=== PATIENT | male | born 1965 | race Caucasian/White ===

== ENCOUNTER 2020-01-02 15:49 | Emergency (ER) | payer BC, SELFPAY ==
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
--- NOTE | ~2020-01-02 | XR_ITS ---
EXAMINATION: XR tibia fibula RT 2V, XR ankle RT min 3V EXAM DATE: 01/02/2020 16:31 INDICATION: Initial encounter following injury, with pain of the right ankle. TECHNIQUE: Right ankle frontal, lateral and oblique projections obtained and reviewed. Right tibia/f ibula frontal and lateral projections obtained and reviewed. There is no prior study for comparison. FINDINGS: There is right ankle fracture dislocation with complete posterior displacement, approximate ly 50% lateral displacement of the talus with respect to the tibial plafond, and about 40% lateral an gulation. There is oblique distal fibular metaphyseal fracture into superolateral aspect of mortise w ith significant posterior displacement, posterior lateral angulation. Disruption of the distal tibiof ibular syndesmosis. Probable posterior tibial malleolar fracture. Disruption of the deltoid ligament with severely widened mortise. Overlying soft tissue swelling. The mid and proximal aspects of the ti sophy and fibula are unremarkable. IMPRESSION: Right ankle fracture dislocation. Reviewed, dictated and finalized at location A. IMPRESSION: Right ankle fracture dislocation.
[2020-01-02 15:51] VITALS: BP 140/97; PULSE 82; RESP 14; TEMP 37.2; O2SAT 97
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
[2020-01-02] MEDS: HYDROMORPHONE HCL 1 MG/ML INJ IV PUSH (16:18)
[2020-01-02] MEDS: TETANUS,DIPHTHERIA,AC PERTUSSIS ADULT (0.5 ML) BOOSTRIX IM (16:30)
[2020-01-02] MEDS: ONDANSETRON INJ 4 MG/2 ML VIAL IV PUSH (16:50)
--- NOTE | 2020-01-02 17:38 | PC.NURSE ---
PT received ice chips with Dr. Katlin niño.
[2020-01-02 19:09] VITALS: BP 159/87; PULSE 85; RESP 17; O2SAT 98
== END 2020-01-02 19:10 | disposition home or self-care (01) ==
PROVIDERS: Emergency Provider Emergency Medicine
DX: S01.111A Laceration without foreign body of right eyelid and periocular area, initial encounter (principal); S82.891A Other fracture of right lower leg, initial encounter for closed fracture; S82.871A Displaced pilon fracture of right tibia, initial encounter for closed fracture; S06.9X9A Unspecified intracranial injury with loss of consciousness of unspecified duration, initial encounter; Z23 Encounter for immunization; Y04.2XXA Assault by strike against or bumped into by another person, initial encounter
CPT/HCPCS: 12011; 25605; 28435; 70450; 72125; 73590; 73600; 73610; 90471; 90715; 96374; 96375; 99285; J1170; J2405; J3010

== ENCOUNTER 2020-01-03 10:52 | Outpatient (CLI) | payer BC, SELFPAY ==
--- NOTE | ~2020-01-03 | CT_ITS ---
EXAMINATION: CT ankle RT wo con DATE: 01/03/2020 11:25 INDICATION: Displaced trimalleolar fracture of right lower leg. TECHNIQUE: Computed tomography (CT) of the right ankle was performed without intravenous contrast. Au tomated exposure control and iterative reconstruction technique were employed. The dose-length produc t was 362.87 mGy-cm. COMPARISON: Right ankle radiograph 01/02/2020 FINDINGS: There is an oblique fracture of distal fibula with the anteromedial aspect of the fracture line at the level of the tibial plafond. The distal fracture fragment demonstrates 1 mm posterior dis placement. There is a comminuted fracture of posterior malleolus with up to 2 mm gap at the articular surface. There is well-corticated heterotopic ossification distal to medial malleolus from old injur y. There is a displaced punctate avulsion fracture of medial malleolus. There is normal alignment at the ankle mortise. There is an ankle joint effusion with small loose bodies. There is mild osteoarthr itis of subtalar joint. There is extensive subcutaneous edema. IMPRESSION: 1. Trimalleolar ankle fracture. 2. Ankle joint effusion with loose bodies. Reviewed, dictated and finalized at location A.
== END 2020-01-03 10:53 | disposition home or self-care (01) ==
PROVIDERS: Visit Provider Orthopaedic Surgery
DX: S82.851A Displaced trimalleolar fracture of right lower leg, initial encounter for closed fracture (principal); S93.04XA Dislocation of right ankle joint, initial encounter; M25.471 Effusion, right ankle; M24.071 Loose body in right ankle
CPT/HCPCS: 73700

== ENCOUNTER 2020-01-04 01:24 | Day surgery (SDC) | payer BC, SELFPAY ==
[2020-01-03 13:10] VITALS: BP 133/71; PULSE 64; RESP 16; TEMP 36.9; O2SAT 98; BMI 27.8
[2020-01-04] VITALS (7 sets, daily range): BP systolic 108–132; BP diastolic 62–84; PULSE 52–70; RESP 10–18; TEMP 36.1–36.6; O2SAT 97–99
--- NOTE | ~2020-01-04 | XR_ITS ---
EXAMINATION: XR surgery orthopedic DATE: 01/04/2020 13:00 INDICATION: Trimalleolar right ankle fracture. TECHNIQUE: 5 intraoperative fluoroscopic views of right ankle were obtained. Were obtained. I was not present. Fluoroscopy exposure time was 44 seconds. COMPARISON: Right ankle CT 01/03/2020 FINDINGS: There is an oblique fracture of distal fibula status post open reduction internal fixation with semitubular plate, screws, and interfragmentary screw. There is fixation of the tibiofibular syn desmosis. Again seen is a coronal fracture of the posterior malleolus with 2 mm gap at the articular surface. Again seen is a punctate avulsion fracture distal to medial malleolus. IMPRESSION: 1. Trimalleolar ankle fracture status post open reduction internal fixation. Reviewed, dictated and finalized at location A.
--- NOTE | 2020-01-04 07:08 | WPDHPUPDATE1 ---
History and Physical Update Update Date/Time: 01/04/20 07:08 History and Physical has been reviewed, including an updated exam of the patient. There are NO changes in the patient's condition. Risks, benefits, and alternatives have been discussed and questions answered. Patient agrees to proceed with procedure.
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
--- NOTE | 2020-01-04 09:39 | WPDANESPNB ---
Anes - Peripheral Nerve Block Date/Time: 01/04/20 09:39 I have discussed with the patient/family/POA the placement of a peripheral nerve block for post-operative pain management, including associated risks, benefits, complications, and side effects. Alternative methods of post-operative analgesia were detailed. Questions were solicited and answers provided to the satisfaction of the patient/family/POA. Time-Out: A pre-procedural Time-Out was completed immediately before starting the procedure and confirmed: Patient Identification, Site, Procedure, Patient Position and the Availability of Requisite Equipment. Clinical Indications: Acute post-operative pain management requested by the operative surgeon. Nerve Block Insertion Note Anes-nerve block: posterior fossa sciatic (20cc) right and adductor canal (10cc) right Patient position: supine Skin prep: chlorhexidine Needle: 22 gauge, stimulating, insulated echogenic needle. Needle length: 80 mm Technique: ultrasound (in plane) Injectate: bupivacaine 0.5% with epi 5 mcg/ml (20cc) Observations: tolerated well Complications: none Procedure start time:: 1030 Procedure end time:: 1034
[2020-01-04] MEDS: LACTATED RINGERS 1,000 ML 30 ML IV CONT ×3 (09:45→13:42)
[2020-01-04] MEDS: ceFAZolin 2 GM/D5W 50 ML 2 GM/50 ML BAG IVPB (11:25)
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
== END 2020-01-04 15:43 | disposition home or self-care (01) ==
PROVIDERS: Visit Provider Orthopaedic Surgery
PROC: (CPT 27829; principal; 2020-01-04 11:00)
DX: S82.851A Displaced trimalleolar fracture of right lower leg, initial encounter for closed fracture (principal); S93.431A Sprain of tibiofibular ligament of right ankle, initial encounter; G89.18 Other acute postprocedural pain; W03.XXXA Other fall on same level due to collision with another person, initial encounter
CPT/HCPCS: 27829; 27822; 64445; 64447; C1713; J0131; J0690; J1100; J2250; J2405; J2704; J3010; J7120

== ENCOUNTER 2021-02-25 10:24 | Emergency (ER) | payer OTHER, SELFPAY ==
--- NOTE | ~2021-02-25 | CT_ITS ---
EXAMINATION: CT abdomen pelvis w con DATE: 02/25/2021 12:00 INDICATION: Abdominal pain TECHNIQUE: Computed tomography (CT) of the abdomen and pelvis was performed with 100 mL Omnipaque-350 intravenous contrast. Automated exposure control and iterative reconstruction technique were employe d. The dose-length product was 698.05 mGy-cm. COMPARISON: None FINDINGS: Visualized mid to lower lungs are clear. Heart size is normal. No pericardial or pleural effusion. Sm all sliding-type hiatal hernia. 7 mm calcified gallstone near the neck of the gallbladder. No gallbla dder dilation, wall thickening or pericholecystic inflammatory change to suggest acute cholecystitis. Liver is normal with no intra or extra hepatic ductal or ductal dilation. Spleen, pancreas, bilatera l adrenal glands and kidneys are normal. There are few scattered colonic diverticula without adjacent inflammatory change to suggest diverticulitis. Small bowel and appendix are normal. Bladder is brandon l. Small fat-containing left inguinal hernia. Trace amount of free fluid in the pelvis. No abscess or free intraperineal gas. Postoperative change of prior umbilical hernia mesh repair. No pathologicall y enlarged abdominal or pelvic lymphadenopathy. Mild lumbar levocurvature curvature. Severe disc heig ht loss with sclerotic Modic type III degenerative endplate changes at L2-L3. Otherwise mild lumbar s pondylosis. IMPRESSION: 1. Trace amount of nonspecific free fluid in the pelvis which is of indeterminate etiology. No other acute intra-abdominal/pelvic process. 2. Cholelithiasis. 3. Small sliding-type hiatal hernia. 4. Small fat-containing left inguinal hernia and changes of prior umbilical hernia mesh repair. Reviewed, dictated and finalized at location A. IMPRESSION: 1. Trace amount of nonspecific free fluid in the pelvis which is of indetermina te etiology. No other acute intra-abdominal/pelvic process. 2. Cholelithiasis. 3. Small sliding-type hiatal hernia. 4. Small fat-containing left inguinal hernia and changes of prior umbilical her negrito mesh repair.
--- NOTE | ~2021-02-25 | US_ITS ---
EXAMINATION: US abdomen limited EXAM DATE: 02/25/2021 14:49 INDICATION: Right upper quadrant pain. TECHNIQUE: Multiple grayscale and Doppler images of the abdomen right upper quadrant were obtained (b y a technologist who performed the scan) and subsequently reviewed. There is no prior study for leoncio dumont. FINDINGS: The pancreatic head and body are normal in appearance. The pancreatic tail is not visualized. The l iver has normal echogenicity and contour. There are no focal liver lesions identified. There is no evidence of intrahepatic biliary duct dilation. Portal venous flow was seen in the hepatopedal, nor mal direction and has normal Doppler waveform. No right-sided hydronephrosis. Common bile duct measures 3-4 mm, which is normal. The gallbladder wall is normal in thickness, with expected amount of distention. No sonographic evidence of pericholecystic fluid. There is no cholel ithiases. Technologist performing exam reports patient did not demonstrate sonographic Nicole's sign. Please note that this sign is less reliable in patients who have received pain medication. IMPRESSION: Cholelithiasis. Reviewed, dictated and finalized at location B. IMPRESSION: Cholelithiasis.
[2021-02-25 10:45] VITALS: BP 154/97; PULSE 57; RESP 16; TEMP 36.4; O2SAT 99
[2021-02-25] MEDS: SODIUM CHLORIDE 0.9% IV 1,000 ML 999 ML IV CONT (11:20)
[2021-02-25 11:28] LABS: Basophils Absolute Auto 0.1 K/mm3 (0.0-0.1); Basophils Percent Auto 0.8 % (0.2-1.2); Eosinophils Percent Auto 25.8 % (0-4.4); Hematocrit 39.4 % (42.0-52.0); Hemoglobin 13.1 g/dL (14.0-18.0); Immature Granulocyte Absolute 0.02 K/mm3 (0.00-0.031); Immature Granulocyte Percent A 0.3 % (0-0.5); Lymphocytes Absolute Auto 1.29 K/mm3 (0.9-3.2); Lymphocytes Percent Auto 17.1 % (18.3-44.2); Mean Corpuscular HGB Conc 33.2 g/dl (32-36); Mean Corpuscular Hemoglobin 29.2 pg (26-34); Mean Corpuscular Volume 87.8 fl (80-100); Mean Platelet Volume 9.8 fl (7.4-10.4); Monocytes Absolute Auto 0.5 K/mm3 (0.1-0.6); Monocytes Percent Auto 6.1 % (2.6-8.5); Neutrophils Absolute Auto 3.8 K/mm3 (1.3-6.7); Neutrophils Percent Auto 49.9 % (45.5-73.1); Platelet Count Result 215 k/mm3 (150-375); Red Blood Count 4.49 M/mm3 (4.6-6.20); Red Cell Distribution Width 13.4 % (11.5-14.5); White Blood Count 7.6 K/mm3 (4.5-10.0)
--- NOTE | 2021-02-25 11:28 | ED.ABDPAIN ---
HPI - Abdominal Pain General Chief Complaint: Abdominal Pain Stated Complaint: ABD PAIN [id number] Time Seen by Provider: 02/25/21 11:06 Source: patient, RN notes reviewed and old records reviewed Mode of arrival: ambulatory Limitations: no limitations History of Present Illness HPI narrative: Patient is 55 years old white male presented to the ED with diffuse abdominal pain, intermittent that for about 1 month. Patient also complaining of watery stool over the last 3 weeks on average 3-12 times a day. Patient denies any fever, chills, nausea, vomiting. History of abdominal hernia repair, does not take medicine at home, patient does not smoke, drink daily, uses marijuana intermittently, history of Covid infection March 2020, not vaccinated yet. Related Data Allergies Allergy/AdvReac Type Severity Reaction Status Date / Time No Known Allergies Allergy Verified 02/25/21 11:03 Review of Systems Review of Systems: Narrative: CONSTITUTIONAL: Denies fever, chills, or sweats. EYES: Denies visual changes, redness, or discharge. ENT: Denies rhinorrhea, congestion, sore throat, or otalgia. CARDIOVASCULAR: Denies chest pain, palpitations, or edema. RESPIRATORY: Denies cough or dyspnea. GASTROINTESTINAL: Abdominal pain and diarrhea GENITOURINARY: Denies dysuria or hematuria. SKIN: Denies rash or itching. MUSCULOSKELETAL: Denies back pain, joint pain, or myalgia. NEUROLOGIC: Denies headache, numbness, or weakness. PSYCHIATRIC: Denies anxiety or depression. [facility] Past Medical History Medical History Congenital hindfoot valgus Flat foot [pes planus] (acquired), left foot Left ankle instability Overweight (BMI 25.0-29.9) Social History Social History Smoking status: Never smoker Alcohol intake: current Drinks per week: 4 Substance use: never Substance use type: does not use Gender identity (if verbalized by the patient): Male Exam Narrative: Exam Narrative: General appearance: Well-developed, well-nourished Skin: Normal color Head: Normocephalic, nontraumatic Eyes: Clear conjunctiva ENT: Oropharynx normal, ears normal, nose normal Neck: Supple, nontender Chest and respiratory: Airway patent, no respiratory distress, no accessory muscle use Heart: Regular rate/rhythm Abdomen: Soft, nontender, no organomegaly, quiet bowel sounds Vascular: Normal peripheral pulses, normal capillary refill. Musculoskeletal: Normal range of motion, nontender back Neurologic: Alert and oriented ?3, RECREATION THERAPY AIDE is normal as tested, no gross motor deficit Course Course Emergency Course: Stable Vital Signs Vital signs: Vital Signs Temperature 36.4 C 02/25/21 10:45 Pulse Rate 57 L 02/25/21 10:45 Respiratory Rate 16 02/25/21 10:45 Blood Pressure 154/97 H 02/25/21 10:45 Pulse Oximetry 99 02/25/21 10:45 Temperature 36.4 C 02/25/21 10:45 Pulse Rate 55 L 02/25/21 13:19 Respiratory Rate 16 02/25/21 10:45 Blood Pressure 147/104 H 02/25/21 13:19 Pulse Oximetry 100 02/25/21 13:19 MDM - Abdominal Pain MDM Narrative Medical decision making narrative: Abdominal pain for over 4 weeks, diarrhea over 3 weeks, patient denies any fever, chills, aggravating or relieving factors. Labs, CT abdomen pelvis with IV contrast, IV fluid, ordered. Work-up showed no significant abnormality. Patient will be discharged to follow-up with [facility] laborer for further evaluation including colonoscopy, possible colon biopsy. Differential Diagnosis Differential diagnosis: Likely abdominal pain, diverticulitis and gastroenteritis Lab Data Result diagrams:
[2021-02-25 11:42] LABS: Alanine Aminotransferase 19 U/L (4-50); Albumin Level 4.3 g/dL (3.5-5.1); Alkaline Phosphatase 92 U/L (38-126); Anion Gap 5 mmol/L (8-16); Aspartate Amino Transferase 25 U/L (17-59); Bilirubin,Total 0.6 mg/dL (0.2-1.3); Blood Urea Nitrogen 11 mg/dL (9-20); Calcium 9.1 mg/dL (8.4-10.2); Carbon Dioxide 31 mmol/L (22-30); Chloride 105 mmol/L (98-107); Estimated CRCL calculation 81 ml/min; Estimated Glomerular Filt Rate > 60; Glucose 100 mg/dL (65-110); Lipase 124 U/L (23-300); Potassium 3.9 mmol/L (3.4-5.0); Sodium 141 mmol/L (137-145)
[2021-02-25 12:43] LABS: Add Urine Microscopic? NO; Appearance Urine Clear (Clear); Bilirubin Urine Negative (Negative); Blood Urine Negative (Negative); Color Urine Straw (Yellow); Glucose Urine UA Negative (Negative); Ketones Urine Negative (Negative); Leukocyte Esterase Ur Negative LEU/UL (Negative); Nitrate Urine Negative (Negative); Protein Urine Negative (Negative); Urobilinogen Urine Negative mg/dL (<2.0)
[2021-02-25 12:47] LABS: Specific Grav Ur 1.041 (1.001-1.035)
[2021-02-25 13:19] VITALS: BP 147/104; PULSE 55; O2SAT 100
[2021-02-25 15:02] VITALS: BP 150/96; PULSE 60; RESP 16; O2SAT 100
== END 2021-02-25 15:03 | disposition home or self-care (01) ==
PROVIDERS: Emergency Provider Emergency Medicine
DX: R10.84 Generalized abdominal pain (principal); R19.7 Diarrhea, unspecified; M21.42 Flat foot [pes planus] (acquired), left foot; Q66.6 Other congenital valgus deformities of feet; Z86.16 Personal history of COVID-19; E66.3 Overweight; Z68.28 Body mass index [BMI] 28.0-28.9, adult; K80.20 Calculus of gallbladder without cholecystitis without obstruction; K44.9 Diaphragmatic hernia without obstruction or gangrene; K40.90 Unilateral inguinal hernia, without obstruction or gangrene, not specified as recurrent
CPT/HCPCS: 36415; 74177; 76705; 80053; 81003; 83690; 85025; 96360; 99284; J7030; Q9967

== ENCOUNTER → 2021-03-01 00:55 | Outpatient (CLI) | payer OTHER, SELFPAY ==
[2021-03-01 18:27] LABS: SARS-CoV-2 RNA PCR Negative
== END ==
PROVIDERS: Visit Provider Surgery
DX: Z01.812 Encounter for preprocedural laboratory examination (principal); Z20.822 Contact with and (suspected) exposure to COVID-19
CPT/HCPCS: C9803; U0003; U0005

== ENCOUNTER 2021-03-01 08:09 | Outpatient (CLI) | payer OTHER, SELFPAY ==
[2021-03-01 08:59] LABS: Alanine Aminotransferase 21 U/L (4-50); Albumin Level 4.2 g/dL (3.5-5.1); Alkaline Phosphatase 89 U/L (38-126); Amylase 55 U/L (30-110); Aspartate Amino Transferase 23 U/L (17-59); Bilirubin,Total 0.3 mg/dL (0.2-1.3); Lipase 146 U/L (23-300)
== END 2021-03-01 08:10 | disposition home or self-care (01) ==
PROVIDERS: Visit Provider Surgery
DX: Z01.818 Encounter for other preprocedural examination (principal); K80.10 Calculus of gallbladder with chronic cholecystitis without obstruction
CPT/HCPCS: 36415; 80076; 82150; 83690

== ENCOUNTER 2021-03-05 01:38 | Day surgery (SDC) | payer OTHER, SELFPAY ==
[2021-02-28 14:53] VITALS: BMI 28.4
[2021-03-05] VITALS (8 sets, daily range): BP systolic 111–139; BP diastolic 63–90; PULSE 54–66; RESP 10–20; TEMP 36.8; O2SAT 93–100
--- NOTE | 2021-03-05 10:22 | P.PNAN_ITS ---
Anes - Initial Pre Proc Eval Procedure: Operation Date: 03/05/21 12:00 Proposed Procedures p Laparoscopic Cholecystectomy, Possible Intraoperative Cholangiograms, Possible Open - Baltazar De Souza MD Date/Time: 03/05/21 10:22 Surgeon: Baltazar De Souza MD Pre Op Diagnosis: Chronic Cholecystitis with Cholelithiasis Patient Data Age: 55 Gender: M Height: 1.83 m Weight: 94 kg Allergies Allergy/AdvReac Type Severity Reaction Status Date / Time No Known Allergies Allergy Verified 03/05/21 10:13 Home Medications Medication Instructions Recorded Confirmed Type esomeprazole magnesium 20 mg 20 mg PO DAILY 02/26/21 03/05/21 History capsule,delayed release famotidine 20 mg tablet 20 mg PO DAILY PRN 02/26/21 03/05/21 History ferrous sulfate 325 mg (65 mg 325 mg PO DAILY 02/26/21 03/05/21 History iron) tablet vitamin E 200 unit capsule 200 unit PO DAILY 02/26/21 03/05/21 History Patient hx anesthesia problems: none Family hx anesthesia problems: none [facility] Past Medical History Medical History (Updated 02/27/21 @ 09:04 by Kylah Marx) Congenital hindfoot valgus Flat foot [pes planus] (acquired), left foot High cholesterol Left ankle instability Overweight (BMI 25.0-29.9) Surgical History Surgical History (Updated 02/27/21 @ 09:12 by Kylah Marx) H/O umbilical hernia repair with mesh History of ankle surgery right ankle plate Hx of tonsillectomy Family History Family History Father , age 71 Carcinoma of colon Mother Cerebrovascular accident Social History Social History Smoking status: Never smoker Alcohol intake: current Drinks per week: 5 Substance use: former Substance use type: marijuana Other substance usage details: CHEWABLEABLES Living arrangements: with family Additional occupation/education comments: Sales Gender identity (if verbalized by the patient): Male Anes - Eval Final PreProcedure Day of Procedure 03/05/21 10:22 Patient weight: overweight Heart: regular rate and rhythm Lungs: clear to auscultation Airway: Mallampati scale class II Neurological: alert and oriented Last oral intake: >/= 8 hours ASA classification: II Emergent: no Anesthetic plan: proceed Anesthesia type and monitoring: general ETT and standard monitoring Informed Consent: The patient's anesthetic plan and its attendant risks and benefits were discussed with the patient/family/POA. Questions were solicited and answers provided to the satisfaction of the patient/family/POA.
[2021-03-05] MEDS: LACTATED RINGERS 1,000 ML 30 ML IV CONT ×2 (10:25→14:01)
[2021-03-05] MEDS: ACETAMINOPHEN 500 MG TABLET 1000 MG PO (10:28)
[2021-03-05] MEDS: KETOROLAC 15 MG/ML VIAL (*BKC) IV PUSH (10:28)
--- NOTE | 2021-03-05 12:15 | WPDHPUPDATE1 ---
History and Physical Update Update Date/Time: 03/05/21 12:15 History and Physical has been reviewed, including an updated exam of the patient. There are NO changes in the patient's condition. Risks, benefits, and alternatives have been discussed and questions answered. Patient agrees to proceed with procedure.
[2021-03-05] MEDS: ceFAZolin 2 GM/D5W 50 ML 2 GM/50 ML BAG IVPB (12:19)
[2021-03-05] MEDS: BUPIVACAINE/EPINEPHRINE 0.5% 50 ML VIAL (14:00)
--- NOTE | 2021-03-05 14:21 | W.PM.PROC2 ---
Procedure Note - Detailed Date of Procedure 03/05/21 Pre-op Diagnosis Chronic Cholecystitis with Cholelithiasis Post-op Diagnosis same Procedure Performed Laproscopic Cholecystectomy Surgeon Baltazar De Souza MD Pellet Post Inspector Yolanda MONROE.OR medical assistant cardiology Anesthesia general Indications Patient has had at imaging suggestive of cholelithiasis and has had intermittent upper abdominal pain for some time. Please see the history physical for further details. Findings Fairly normal-appearing gallbladder with some omental adhesions on the lower 3rd. Description of Procedure Patient was seen preoperatively in the holding area and risks, benefits and alternatives confirmed. Patient was taken to the operating room and general anesthesia was induced. A time out was then preformed with the surgery team confirming patient and site of surgery. The abdomen was prepped and draped in the usual sterile fashion. Incision was made just below the left costal margin with an 11 blade knife. I then used the Veress needle technique to enter the abdomen by using the water drop test placing the needle through the left upper quadrant into the peritoneum is easy flow of the saline into the abdomen and then we connected CO2 gas. Abdomen was insufflated to appropriate pressure at 14 mmHg and then I used the 5 mm 0 degree scope through a 5 mm port to carefully twisted the port into the abdomen under direct vision. We had a good pneumoperitoneum upon entry to the abdomen and this allowed me to inspect underneath the umbilicus where the patient previously had an umbilical hernia. There indeed was a good amount of omental adhesions to under the side of umbilicus no obvious repeat hernia and therefore I decided to place a 12 mm port just to the right of all the adhesions that were present on in a about 6 cm bill moore's slough underneath the umbilicus. In order to do this I placed local anesthetic into the marked area just lateral to the umbilicus on the right local anesthetic was infiltrated into the abdominal wall musculature and fascia full-thickness. Following this 11 blade was used to make a 12 mm incision I then used the Bovie cautery under direct vision to carefully incise the fascia at the level of the anterior and posterior rectus sheath and then I carefully twisted the Padilla cannula through this area into the abdomen. The balloon was insufflated and the all of pulled down and pullback. This allowed us a good insufflation a good camera port. The 10 mm laparoscoped was placed on the camera light source and this was then used for the rest of the case. First under low flow and then under high flow the abdomen was insufflated with carbon dioxide never exceeding a pressure of 14. Two more 5 mm trocars were then introduced under direct vision. The following trocars were introduced under direct vision: two 5 mm trocars along the right costal margin laterally in the subcostal area. There were some significant omental adhesions to the underside of the gallbladder. These were taken down with blunt and sharp dissection using some Bovie cautery for hemostasis. We were able to dissect this completely away from the neck of the gallbladder. I then carefully used the L-shaped cautery and the [place] dissector to dissect out the triangle of Calot. I then was able to dissect out both the cystic duct and cystic artery and identify a window of safety. The gall bladder was grasped and the cystic duct and artery were dissected free and clipped with an 5 mm endo-clip chief drafter. The cystic duct and artery were clipped with use of 2 clips on the patient's side 1 on the gallbladder side utilizing a 5 mm endoclip-chief drafter. The cystic duct was then transected. The cystic artery was also transected at this point. The gall bladder was removed using electrocautery and then removed from the abdomen using a large 10 mm grasper via the 12 mm bobbi-umbilical incision. I did have to open the gallbladder as I pulled it up
== END 2021-03-05 16:01 | disposition home or self-care (01) ==
PROVIDERS: Visit Provider Surgery
PROC: 0FT44ZZ Resection of Gallbladder, Percutaneous Endoscopic Approach (ICD-10-PCS; CPT 47562; principal; 2021-03-05 12:00)
DX: K80.10 Calculus of gallbladder with chronic cholecystitis without obstruction (principal); E78.00 Pure hypercholesterolemia, unspecified; F12.90 Cannabis use, unspecified, uncomplicated
CPT/HCPCS: 47562; 36415; 80076; 82150; 83690; 88304; A9270; C9803; J0690; J1100; J1885; J2250; J2405; J2704; J2710; J2765; J3010; J7030; J7120; Q9966; U0003; U0005

== ENCOUNTER → 2021-03-10 09:14 | Outpatient (CLI) | payer OTHER, SELFPAY ==
--- NOTE | ~2021-03-10 | MR_ITS ---
EXAMINATION: MR ankle LT wo con DATE: 03/10/2021 10:14 INDICATION: Chronic left foot and ankle pain and swelling. TECHNIQUE: Magnetic resonance imaging (MRI) of the left ankle was performed without intravenous contr ast. Sequences included sagittal, coronal, and axial proton-density weighted fast spin echo without a nd with fat saturation. COMPARISON: Left ankle radiographs dated 02/04/2021 FINDINGS: Medial ankle ligaments: There are few tiny heterotopic ossicles in the deep deltoid ligament along with suggestion of mild la xity to the fibers to the anterior portion of the deep deltoid ligament consistent with sequela of ch ronic sprain. There is also mild thickening of the superficial deltoid ligament as well as the supero medial component of the spring ligament complex without significant increased signal or surrounding e norma consistent with scarring related to chronic sprain. Lateral ankle ligaments: The anterior and posterior inferior tibiofibular ligaments are normal. The posterior talofibular liga ment is normal. There is complete tear of the anterior talofibular ligament and high-grade partial if not complete tear of the calcaneofibular ligament, both likely chronic. Tendons: Achilles tendon is normal. There is moderate tendinopathy of the peroneus longus and peroneus brevis tendons. Both tendons are partially subluxed across the lateral margin of the retromalleolar groove w ith underlying small osteophyte along the lateral rim of the retromalleolar groove. There appear to b e a longitudinal split tears of both tendons at this level. The tibialis anterior and extensor halluc is longus and extensor digitorum longus tendons are normal. The tibialis posterior, flexor digitorum longus and flexor hallucis longus tendons are normal.. Small amount of fluid within the tibialis post erior tendon sheath both above and below the ankle consistent with mild to moderate tenosynovitis. Plantar fascia: There is thickening and mild increased signal at the proximal plantar aponeurosis with small enthesop hyte at its calcaneal insertion consistent with mild chronic enthesopathy. No surrounding marrow or s oft tissue edema to suggest acute plantar fasciitis. Bones/other: Moderate osteoarthritis of the ankle joint with nonuniform joint space narrowing and regions of high- grade chondromalacia with full/near full-thickness cartilage loss and underlying subarticular edema a long the lateral aspect of the talar dome and tibial plafond and as well as along portions of the art iculation between the medial side of the talus and the medial malleolus. Mild to moderate osteoarthri tis in the midfoot with additional high-grade chondromalacia along both the proximal and distal artic ular surfaces of the middle cuneiform and at the lateral aspect of the distal articular surface of th e navicula appear mild subtalar osteoarthritis. No fracture or pathologic marrow replacing process. L isfranc ligament complex is normal. Fluid: Likely reactive large tibiotalar and subtalar joint effusion which extends into the sinus Tarsi. Mult ilobulated ganglion cyst which appears to arise at the lateral margin of the subtalar joint and exten ding approximately 3.7 cm AP overlying the lateral margin of the calcaneal cuboid joint and measuring 1.3 x 0.8 cm in maximal orthogonal dimensions. Additional less well-defined multilobulated ganglion cyst with surrounding soft tissue edema extending anteroinferiorly from the posterior medial margin o f the subtalar joint along the deep margin of the tarsal tunnel. Mild marrow edema and cystic changes at the calcaneus along the angle of Gissane. IMPRESSION: 1. Chronic medial and lateral ankle sprains including complete tear of the anterior talofibular ligam ent and high grade partial if not complete tear of the calcaneofibular ligament. 2. Polyarticular osteoarthritis, moderate severity with
== END ==
PROVIDERS: Visit Provider Orthopaedic Surgery
DX: M25.572 Pain in left ankle and joints of left foot (principal); S93.492A Sprain of other ligament of left ankle, initial encounter; M19.072 Primary osteoarthritis, left ankle and foot; M94.272 Chondromalacia, left ankle and joints of left foot; M25.472 Effusion, left ankle; S96.812A Strain of other specified muscles and tendons at ankle and foot level, left foot, initial encounter; M65.872 Other synovitis and tenosynovitis, left ankle and foot; M77.32 Calcaneal spur, left foot
CPT/HCPCS: 73721

== ENCOUNTER → 2021-05-12 03:02 | Outpatient (CLI) | payer OTHER, SELFPAY ==
[2021-05-12 20:20] LABS: SARS-CoV-2 RNA PCR Negative
== END ==
PROVIDERS: Visit Provider Orthopaedic Surgery
DX: Z01.812 Encounter for preprocedural laboratory examination (principal); Z20.822 Contact with and (suspected) exposure to COVID-19
CPT/HCPCS: C9803; U0003; U0005

== ENCOUNTER 2021-05-15 00:19 | Day surgery (SDC) | payer OTHER, SELFPAY ==
[2021-05-06 14:48] VITALS: BMI 27.9
--- NOTE | 2021-05-14 14:04 | P.PNAN_ITS ---
Anes - Initial Pre Proc Eval Procedure: Operation Date: 05/15/21 07:30 Proposed Procedures p Left Ankle Medial and Lateral Ligament Reconstruction(Left) - Yonathan Florez MD s Ankle Arthroscopy with Debridement, Insertion Subtalar Implant - Yonathan Florez MD Date/Time: 05/14/21 14:04 Surgeon: Yonathan Florez MD Pre Op Diagnosis: left ankle instability, left flat foot Patient Data Age: 55 Gender: M Height: 1.83 m Weight: 93.44 kg Allergies Allergy/AdvReac Type Severity Reaction Status Date / Time No Known Allergies Allergy Verified 05/06/21 14:46 Home Medications Medication Instructions Recorded Confirmed Type No Home Medications 05/06/21 05/15/21 History Patient hx anesthesia problems: none Family hx anesthesia problems: none Results Review: All pre-operative results and documents have been reviewed as part of the pre-operative evaluation. [facility] Past Medical History Medical History (Updated 05/14/21 @ 14:05 by Jamison Lainez MD) Congenital hindfoot valgus Flat foot [pes planus] (acquired), left foot High cholesterol Hypertension Left ankle instability Left inguinal hernia Overweight (BMI 25.0-29.9) Surgical History Surgical History H/O umbilical hernia repair with mesh History of ankle surgery right ankle plate Hx laparoscopic cholecystectomy 03-05-21 Hx of tonsillectomy Family History Family History Father , age 71 Carcinoma of colon Mother Cerebrovascular accident Social History Social History Smoking status: Never smoker Alcohol intake: current Drinks per week: 3 Substance use: never Substance use type: does not use Other substance usage details: CHEWABLEABLES Living arrangements: with family Additional occupation/education comments: Sales Gender identity (if verbalized by the patient): Male Spiritual care concerns: No Anes - Eval Final PreProcedure Day of Procedure 05/14/21 14:04 Patient weight: overweight Heart: regular rate and rhythm Lungs: clear to auscultation and normal air movement Airway: Mallampati scale class II Neurological: alert and oriented Last oral intake: >/= 8 hours ASA classification: II Emergent: no Anesthetic plan: proceed Anesthesia type and monitoring: general LMA Results Review: All pre-operative results and documents have been reviewed as part of the pre-operative evaluation. Informed Consent: The patient's anesthetic plan and its attendant risks and benefits were discussed with the patient/family/POA. Questions were solicited and answers provided to the satisfaction of the patient/family/POA.
[2021-05-15] VITALS (9 sets, daily range): BP systolic 129–146; BP diastolic 71–87; PULSE 55–78; RESP 10–20; TEMP 36.2–36.4; O2SAT 91–99
--- NOTE | ~2021-05-15 | XR_ITS ---
EXAMINATION: XR surgery orthopedic DATE: 05/15/2021 10:16 INDICATION: Left ankle arthroscopy with insertion of a subtalar implant TECHNIQUE: 4 fluoroscopic images of the left ankle and hindfoot were obtained during procedure perfor med by Dr. Florez. Radiologist was not present for the imaging or procedure. The amount of fluorosco py time used during this procedure was 1.4 minutes. COMPARISON: 02/04/2021 FINDINGS: Postoperative change of the left subtalar arthroereisis with metallic implant projecting over expecte d location of the sinus Tarsi. Expected postoperative gas is seen in the subtalar and tibiotalar join ts. Mild to moderate osteoarthritis at the left ankle and mild osteoarthritis at a few of the tarsal metatarsal joints. Alignment appears near-anatomic. No fracture. IMPRESSION: 1. Expected appearance post left subtalar arthroereisis. See procedure note for further detail. Reviewed, dictated and finalized at location A.
[2021-05-15] MEDS: ACETAMINOPHEN 500 MG TABLET 1000 MG PO (06:20)
[2021-05-15] MEDS: LACTATED RINGERS 1,000 ML 30 ML IV CONT ×3 (06:25→11:30)
[2021-05-15] MEDS: KETOROLAC 15 MG/ML VIAL (*BKC) IV PUSH (06:28)
--- NOTE | 2021-05-15 07:08 | WPDHPUPDATE1 ---
History and Physical Update Update Date/Time: 05/15/21 07:08 History and Physical has been reviewed, including an updated exam of the patient. There are NO changes in the patient's condition. Covid test negative. Risks, benefits, and alternatives have been discussed and questions answered. Patient agrees to proceed with procedure.
[2021-05-15] MEDS: ceFAZolin 2 GM/D5W 50 ML 2 GM/50 ML BAG IVPB (07:32)
[2021-05-15] MEDS: BUPIVACAINE HCL 0.5% PF 30 ML VIAL INFILTRATE (08:22)
--- NOTE | 2021-05-15 10:51 | W.PM.PROC2 ---
Procedure Note - Detailed Date of Procedure 05/15/21 Pre-op Diagnosis left ankle instability, left flat foot Post-op Diagnosis same Procedure Performed LEFT ANKLE MEDIAL AND LATERAL LIGAMENT RECONSTRUCTION, ANKLE DEBRIDEMENT, SUBTALAR IMPLANT Surgeon Yonathan Florez MD [employer] anesthesiology physician assistant Anesthesia general Indications 55-year-old gentleman with severe left ankle medial and lateral instability, anterior degenerative changes and flatfoot deformity. Failed non operative treatment with bracing, physical therapy. Presents for operative treatment. Findings Severe instability of the lateral ankle ligaments. Severe instability of the medial ankle ligaments. Anterior synovitis and osteophytes of the ankle joint. Heel valgus. Description of Procedure What was done: Patient identified in the preoperative holding. Informed consent given. Operative extremity marked. Patient received intravenous antibiotics. Patient brought to the operating room where underwent general anesthetic by anesthesia team. Positioned supine on operating room table. Time-out performed confirming the patient, site of the surgery and the plan. Left lower extremity prepped draped in usual sterile surgical fashion using a ChloraPrep skin solution. Foot ankle exsanguinated and a thigh tourniquet inflated to 250 mmHg. The medial aspect of the joint was addressed 1st. Curvilinear incision from the medial malleolus to the navicular with a 15 blade knife. Hemostasis controlled electrocautery. Fascia incised in line with skin incision. Superficial and deep deltoid ligament addressed and examined. Noted to be thin and without tension. Severe medial instability noted on fluoroscopy. Reconstruction performed with Arthrex internal brace. Drill hole placed in the medial malleolus and swivel lock anchor with fiber tape placed. One limb of the fiber tape then placed into the center position of the talus with the ankle mortise reduced. The 2nd limb was placed into drill hole in the sustentaculum with the ankle reduced. Good stability noted. Deltoid ligament refilled and repaired with 0 Vicryl interrupted suture. Thorough irrigation. Fascia repaired with 0 Vicryl interrupted suture. Anteromedial capsulotomy performed with 15 blade knife. Anterior osteophytes from the tibia and talus removed with a rongeur. Inflammatory tissue removed. Ankle thoroughly irrigated and fascia closed with 0 Vicryl interrupted suture. Subcutaneous tissue repaired with 2 Vicryl and 3-0 Monocryl interrupted suture and skin repaired with mark. The lateral side was then addressed. Curvilinear incision from the lateral malleolus to the sinus tarsi with 15 blade knife. Hemostasis controlled electrocautery. Almost complete loss of the anterior talofibular and calcaneal fibular ligaments noted. The origin and insertion of each ligament was dissected out. Repair then performed with the Arthrex internal brace. Bilateral placed in the distal fibula and verified with fluoroscopy. Supple arcus anchor with the fiber tape. One limb of the fiber tape was then inserted into the neck of the talus to recreate the anterior talofibular ligament. One limb was placed into the lateral calcaneus to recreate the calcaneal fibular ligament. Placement verified with image intensification. The remaining tissue was Reefed and repaired with 0 Vicryl interrupted suture. Wound thoroughly irrigated antibiotic solution. Anterolateral ankle joint capsulotomy performed 15 blade knife in the anterior ankle joint was then debrided osteophytes and inflammatory tissue. Fascia closed with 0 Vicryl interrupted suture. Subcutaneous tissue repaired with 2-0 Vicryl and 3-0 Monocryl interrupted suture. Fascia over the sinus tarsi then incised in line with skin incision with a 15 blade knife. Dissection carried down to the sinus tarsi and anterior facet. Guide pin placed between the anterior and middle facets and verified with image intensifi
[2021-05-15] MEDS: fentaNYL CITRATE INJ (*CRX) 100 MCG/2 ML VIAL 25 MCG IV PUSH ×3 (10:56→11:38)
== END 2021-05-15 13:05 | disposition home or self-care (01) ==
PROVIDERS: Visit Provider Orthopaedic Surgery
PROC: (CPT 28899; principal; 2021-05-15 07:30)
PROC: (CPT 28899; 2021-05-15 07:30)
DX: M25.372 Other instability, left ankle (principal); M21.42 Flat foot [pes planus] (acquired), left foot; M65.872 Other synovitis and tenosynovitis, left ankle and foot; M19.072 Primary osteoarthritis, left ankle and foot; I10 Essential (primary) hypertension; E78.00 Pure hypercholesterolemia, unspecified
CPT/HCPCS: 28899; 27698; 29898; A9270; C9803; J0690; J1100; J1170; J1885; J2250; J2405; J2704; J3010; J7030; J7120; U0003; U0005

== ENCOUNTER 2021-08-11 11:33 | Emergency (ER) | payer OTHER, SELFPAY ==
--- NOTE | ~2021-08-11 | XR_ITS ---
EXAMINATION: XR elbow RT min 3V EXAM DATE: 08/11/2021 12:29 INDICATION: elbow pain X 1 MONTH, decreased ROM. NKI TECHNIQUE: Right elbow frontal, lateral with flexion, and oblique projections obtained and reviewed. There is no prior study for comparison. FINDINGS: Right elbow anterior humeral line intact. There are no acute fractures or dislocations katina ntified. There is no subcutaneous gas. There is no elbow joint effusion. There is mild primary oste oarthritis. There are no radiopaque foreign bodies. IMPRESSION: Right elbow mild osteoarthritis, joint effusion. Reviewed, dictated and finalized at location A. T OFFICE ASSISTANT
--- NOTE | 2021-08-11 12:07 | ED.UPPEXIN ---
HPI - Extremity Injury (Upper) General Chief Complaint: Extremity Injury, Upper Stated Complaint: i think i have a dislocated right elbow Time Seen by Provider: 08/11/21 11:57 Source: patient Mode of arrival: ambulatory Limitations: no limitations History of Present Illness HPI narrative: The patient is a 56 yo male presenting for evaluation of right elbow pain. Pain has been present since for about 6 weeks. Patient reports an aching pain in his right elbow, rated 7/10 in severity. Patient reports difficulty with extension with decreased range of motion secondary to pain. Patient denies swelling redness. Pt denies fever or chills. No lacerations or overlying skin changes. Pt denies numbness in his extremity. No pain at the wrist or hand. Pt is right hand dominant. No recent heavy bending or lifting. Patient has follow up scheduled with Dr. Florez. Related Data Allergies Allergy/AdvReac Type Severity Reaction Status Date / Time No Known Allergies Allergy Verified 07/15/21 11:58 Review of Systems Review of Systems: CONSTITUTIONAL: Denies fever CARDIOVASCULAR: Denies chest pain RESPIRATORY: Denies cough or dyspnea. GASTROINTESTINAL: Denies abdominal pain SKIN: Denies rash MUSCULOSKELETAL: Denies back pain, reports right elbow pain NEUROLOGIC: Denies headache, denies weakness or numbness PMFSH Past Medical History Medical History Congenital hindfoot valgus Encounter for postoperative care Flat foot [pes planus] (acquired), left foot High cholesterol Hypertension Left ankle instability Left inguinal hernia Overweight (BMI 25.0-29.9) Surgical History Surgical History H/O umbilical hernia repair with mesh History of ankle surgery right ankle plate Hx laparoscopic cholecystectomy 03-05-21 Hx of tonsillectomy Family History Family History Father , age 71 Carcinoma of colon Mother Cerebrovascular accident Social History Social History Alcohol intake: current Drinks per week: 3 Substance use: never Substance use type: does not use Other substance usage details: CHEWABLEABLES Additional occupation/education comments: Sales Gender identity (if verbalized by the patient): Male Spiritual care concerns: No Exam Narrative: GENERAL: Awake, alert, conversant HEAD: Normocephalic, atraumatic. EYES: PERRLA and EOMI. ENT: Nares clear, no rhinorrhea or epistaxis. Mucous membranes moist. NECK: Supple. CHEST: No respiratory distress, breathing even and non labored HEART: Regular rate, sinus rhythm ABDOMEN:Non distended, non tender EXTREMITIES: Patient able to complete active flexion to 170 degrees, also has active flexion to 10 degrees. Pt with intact sensation m/r/u nerve distribution. No edema or erythema. Olecranon is mildly tender to palpation. No squaring off of the shoulder. Full active and passive ROM at the right shoulder. SKIN: Warm, dry, no rash. NEURO:No focal deficits. Alert and oriented x3 Course Vital Signs Vital signs: Vital Signs Temperature 36.7 C 08/11/21 12:20 Pulse Rate 63 08/11/21 12:20 Respiratory Rate 16 08/11/21 12:20 Blood Pressure 151/103 H 08/11/21 12:20 Pulse Oximetry 100 08/11/21 12:20 Temperature 36.7 C 08/11/21 12:20 Pulse Rate 63 08/11/21 12:20 Respiratory Rate 16 08/11/21 12:20 Blood Pressure 151/103 H 08/11/21 12:20 Pulse Oximetry 100 08/11/21 12:20 MDM - Extremity Injury (Upper) MDM Narrative Medical decision making narrative: Patient presented for evaluation of atraumatic right elbow pain. At the time of assessment, ABCs are intact and vital signs are stable. Patient is neurovascularly intact, intact sensation median, ulnar, radial nerve distribution. Senior Escrow Officer strength 5/5. No focal deficit.
[2021-08-11 12:20] VITALS: BP 151/103; PULSE 63; RESP 16; TEMP 36.7; O2SAT 100
[2021-08-11 13:06] VITALS: BP 140/70; PULSE 70; RESP 18; TEMP 36.7; O2SAT 100
== END 2021-08-11 13:09 | disposition home or self-care (01) ==
LOC: ANHED 12:59
PROVIDERS: Emergency Provider Emergency Medicine
DX: M25.521 Pain in right elbow (principal); M25.421 Effusion, right elbow; E78.00 Pure hypercholesterolemia, unspecified; I10 Essential (primary) hypertension; E66.3 Overweight; Z68.30 Body mass index [BMI] 30.0-30.9, adult; M21.42 Flat foot [pes planus] (acquired), left foot; M19.021 Primary osteoarthritis, right elbow
CPT/HCPCS: 73080; 99283

== ENCOUNTER 2024-10-27 00:21 | Day surgery (SDC) | payer OTHER, SELFPAY ==
[2024-09-05 13:48] VITALS: BMI 28.3
--- OUTSIDE RECORDS SUMMARY | 2024-10-27 00:24 | XMS_ITS | Continuity of Care Document ---
Author Organization [facility] Address [address] [place] [place] [address] [place] [address] Phone Care Team Providers Care Furnace Puncher Name Role Phone Gene Bravo MD Unavailable Unavailable Advance Directives Directive Yes / No Effective Date File Name No Information Encounters Encounter Description Practice Location Reason(s) For Visit Diagnoses Date Provider Providers Copied on Encounter [facility], [address] [place] [id number], [place] tel:[phone] [facility] No Information [facility]. [address] [place], [id number], [place]. tel:[phone] Family History Family Member Type Diagnosis Age At Onset No Information Payers Payer name Insurance type Covered green party ID Authoriza tion(s) No Information Social History Type Description Quantity Date Captured Comments Sex Male Smoking Status No Information Chief Complaint And Reason For Visit No Information Plan Of Treatment Date Type Action Status No Information History Of Present Illness Encounter Date Complaint History Of Prese nt Illness No Information Instructions Date Instruction Additional Infor mation No Information Assessments Type Assessment Date No Information
--- OUTSIDE RECORDS SUMMARY | 2024-10-27 00:24 | XMS_ITS | Clinical Summary ---
Author Organization [facility] Address [address] [place] [id number] Care Team Providers Care Die Sinking Machine Operator Name Role Phone Birdie Hopkins NP Primary Care Provider [phone] Allergies No known active allergies Medications ibuprofen 800 MG tablet Take 800 mg by mouth 3 (three) times daily as needed. FOR PAIN 06/25/2021 Active Active Problems Problem Noted Date Diagnosed Date Hyperlipidemia, unspecified hyperlipidemia type 12/02/2021 Impaired fasting glucose 12/02/2021 Chronic pain of left knee 10/02/2021 Arthritis 10/02/2021 Immunizations Name Administration Dates Next Due Influenza (Generic) 04/11/2014,04/11/2013 Tdap (Generic) 01/02/2020 Family History Medical History Relation Comments Colon Cancer- passed at the age of 70 Father Colon Cancer Mother Relation Status Comments Father Mother Social History Tobacco Use Types Packs/Day Years Used Date Smoking Tobacco: Never Smokeless Tobacco: Never Tobacco Cessation:Counseling Given: Yes Comments:The provider can provide you with more information about quitting Alcohol Use Standard Drinks/Week Comments Yes 4 (1 standard drink = 0.6 oz pur e alcohol) PHQ-2 Answer Date Recorded PHQ-2 Score - If the patient scores above 3, please move on to questions 3-9 0 10/02/2021 Sex and Gender Information Value Date Recorded Sex Assigned at Not on file Legal Sex Male 9:30 PM FUNERAL PLANNER Gender Identity Male 09/29/2021 9:02 AM FUNERAL PLANNER Sexual Orientation Not on file Last Filed Vital Signs Vital Sign Reading Time Taken Comments Blood Pressure 128/86 10/02/2021 8:36 AM FUNERAL PLANNER Pulse 65 10/02/2021 8:36 AM FUNERAL PLANNER Temperature 36.4 C (97.5 F) 10/02/2021 8:36 AM FUNERAL PLANNER Respiratory Rate 18 10/02/2021 8:36 AM FUNERAL PLANNER Oxygen Saturation 98% 10/02/2021 8:36 AM FUNERAL PLANNER Inhaled Oxygen Concentration - - Weight 96.2 kg (212 lb) 10/02/2021 8:36 AM FUNERAL PLANNER Height 182.9 cm (6') 10/02/2021 8:36 AM FUNERAL PLANNER Body Mass Index 28.75 10/02/2021 8:36 AM FUNERAL PLANNER Plan of Treatment Health Maintenance Due Date Last Done Comments Zoster Vaccines (1 of 2) 2015 Annual Physical 10/02/2022 10/02/2021 COVID-19 Vaccine (2023-2 5 season) 2024 Influenza Adult (#1) 2024 04/11/2014, 04/11/2013 Colorectal Cancer Screening Colonoscopy (10 Years) 08/02/2025 DTaP, Tdap and Td Vaccines ( 2 - Td or Tdap) 01/01/2030 01/02/2020 Hepatitis C Completed 11/03/2021 Meningococcal B Vaccine Aged Out No l onger eligible based on patient's age to complete this topic Meningococcal Vaccine Aged Out No art ras eligible based on patient's age to complete this topic Pneumococcal Vaccine: Pediatrics (0 to 5 Years) and At-Risk Patients (6 to 64 Years) Aged Out No longer eligible b ased on patient's age to complete this topic RSV Immunizations Under 20 Months Aged Out No longer eligible b ased on patient's age to complete this topic Procedures Procedure Name Priority Date/Time Associated Diagnosis Comments HEPATITIS C ANTIBODY W/RFX TO HCV RNA Routine 11/03/2021 8:55 AM CDT from Last 3 Months or Most Recently Relevant to Health Maintenance Results * HEPATITIS C ANTIBODY W/RFX TO HCV RNA (11/03/2021 8:55 AM CDT) HEPATITIS C AB NON-REACTI VE NON-REACT JAGDISH [facility] SIGNAL TO CUTOFF 0.01 <[address] [facility] Comment: HCV antibody was non-reactive. There is no laboratory evidence of HCV infection. In most cases, no further action is required. However, if recent HCV exposure is suspected, a test for HCV RNA (test code 34882) is suggested. For additional information please refer to http://education.Webdyn/faq/TDG07t8 (This link is being provided for informational/ educational purposes only.) 11/03/2021 8:55 AM CDT 11/03/2021 8:56 AM CDT Narrative [facility] - 11/04/2021 3:47 PM CDT FASTING:YES FASTING: YES us Birdie Hopkins NP LABORATORY Final Res ult [facility] [address] [place] [place] [address] from Last 3 Months or Most Recently Relevant to Health Maintenance Insurance [facility] Care Teams Die Sinking Machine Operator Relationship Specialty Start Date End Date Birdie Hopkins NP [address] [place] [address] PCP - General NURSE PRACTITIONER 09/26/21
[2024-10-27 12:03] VITALS: BP 131/98; PULSE 62; RESP 14; TEMP 36.1; O2SAT 94
[2024-10-27] MEDS: LACTATED RINGERS 1,000 ML 150 ML IV CONT (12:14)
--- NOTE | 2024-10-27 12:17 | PM.HPGS ---
History of Present Illness History of Present Illness Consent: Risks, benefits, and alternatives have been discussed and questions answered. Patient agrees to proceed with procedure. Chief complaint: History of colon polyps Narrative: Surjit Person is a 59 year old male with colon polyp 5 years ago Review of Systems Review of Systems: All systems reviewed & are unremarkable except as noted in HPI and below PMFSH Past Medical History Medical History (Updated 10/27/24 @ 12:17 by Isreal Galvin MD) Adenomatous colon polyp Arthritis of elbow, right, degenerative Encounter for postoperative care Hypertension Left inguinal hernia High cholesterol Flat foot [pes planus] (acquired), left foot Congenital hindfoot valgus Left ankle instability Overweight (BMI 25.0-29.9) Surgical History Surgical History Hx laparoscopic cholecystectomy 8-11-20 H/O umbilical hernia repair with mesh Hx of tonsillectomy History of ankle surgery right ankle plate Family History Family History Father , age 71 Carcinoma of colon Mother Cerebrovascular accident Social History Social History Smoking status: Never smoker Smokeless tobacco user: chewing tobacco Additional smoking assessment comments: pt used to chew tobacco for 30 years. 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 Gender identity (if verbalized by the patient): Male Spiritual care concerns: No Meds Home Medications and Allergies Home Medications ?Medication ?Instructions ?Recorded ?Confirmed ?Type acetaminophen 500 mg capsule 500 mg PO Q6H PRN fever or pain 08/11/21 09/05/24 Rx #30 caps diclofenac sodium 1 % topical gel 2 g topical QID 10 days #100 grams 08/11/21 09/05/24 Rx (Voltaren Arthritis Pain) esomeprazole magnesium 20 mg 20 mg PO DAILY gastric reflux 09/05/24 10/27/24 History capsule,delayed release (Nexium) semaglutide (weight loss) subcut 09/05/24 History Allergies Allergy/AdvReac Type Severity Reaction Status Date / Time No Known Allergies Allergy Verified 10/27/24 12:02 Vital Signs Vital Signs - 24 hr 10/27/24 12:03 Temperature 96.9 F L Pulse Rate 62 Respiratory Rate 14 Blood Pressure 131/98 H Pulse Oximetry 94 Oxygen Delivery Room Air Exam Const: General: comfortable and no acute distress HENMT: Face/Nose/Sinus: Normal nares present Eyes: General: appearance normal, both eyes and all related structures Neck: Neck: no JVD Resp: Auscultation: clear to auscultation bilaterally Cardio: Rate: regular rate Rhythm: regular rhythm GI: Inspection: non-distended GI Palp: Yes Soft to palpation Skin: General skin exam: normal color Neuro: General: gait normal Speech: normal speech Extrem: General: normal to inspection Psych: Mental Status: mental status grossly normal Assessment and Plan Assessment and plan (1) Adenomatous colon polyp: Code(s): D12.6 - Benign neoplasm of colon, unspecified Status: Acute Assessment and Plan: colonoscopy
--- NOTE | 2024-10-27 12:20 | P.PNAN_ITS ---
Anes - Initial Pre Proc Eval Procedure: Operation Date: 10/27/24 13:30 Proposed Procedures p Colonoscopy - Isreal Galvin MD Date/Time: 10/27/24 12:20 Surgeon: Isreal Galvin MD Pre Op Diagnosis: History of colon polyps Patient Data Age: 59 Gender: M Height: 1.83 m Weight: 89.8 kg Last Vital Signs Temp 36.1 C L 10/27/24 12:03 Pulse 62 10/27/24 12:03 Resp 14 10/27/24 12:03 BP 131/98 H 10/27/24 12:03 Pulse Ox 94 10/27/24 12:03 O2 Del Method Room Air 10/27/24 12:03 Allergies Allergy/AdvReac Type Severity Reaction Status Date / Time No Known Allergies Allergy Verified 10/27/24 12:02 Home Medications ?Medication ?Instructions ?Recorded ?Confirmed ?Type acetaminophen 500 mg capsule 500 mg PO Q6H PRN fever or pain 08/11/21 09/05/24 Rx #30 caps diclofenac sodium 1 % topical gel 2 g topical QID 10 days #100 grams 08/11/21 09/05/24 Rx (Voltaren Arthritis Pain) esomeprazole magnesium 20 mg 20 mg PO DAILY gastric reflux 09/05/24 10/27/24 History capsule,delayed release (Nexium) semaglutide (weight loss) subcut 09/05/24 History Patient hx anesthesia problems: none Family hx anesthesia problems: none Results Review: All pre-operative results and documents have been reviewed as part of the pre- operative evaluation. [facility] Past Medical History Medical History Adenomatous colon polyp Arthritis of elbow, right, degenerative Encounter for postoperative care Hypertension Left inguinal hernia High cholesterol Flat foot [pes planus] (acquired), left foot Congenital hindfoot valgus Left ankle instability Overweight (BMI 25.0-29.9) Surgical History Surgical History Hx laparoscopic cholecystectomy 8-4-21 H/O umbilical hernia repair with mesh Hx of tonsillectomy History of ankle surgery right ankle plate Family History Family History Father , age 71 Carcinoma of colon Mother Cerebrovascular accident Social History Social History Smoking status: Never smoker Smokeless tobacco user: chewing tobacco Additional smoking assessment comments: pt used to chew tobacco for 30 years. 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 Informed Consent: The patient's anesthetic plan and its attendant risks and benefits were discussed with the patient/family/POA. Questions were solicited and answers provided to the satisfaction of the patient/family/POA.
[2024-10-27 12:34] VITALS: BP 132/86; PULSE 69; RESP 27; O2SAT 100
[2024-10-27 12:44] VITALS: BP 130/94; PULSE 59; RESP 16; O2SAT 98
[2024-10-27 12:54] VITALS: BP 144/96; PULSE 60; RESP 16; O2SAT 100
== END 2024-10-27 13:03 | disposition home or self-care (01) ==
PROVIDERS: Visit Provider Internal Medicine Gastroenterology
PROC: 0DJD8ZZ Inspection of Lower Intestinal Tract, Via Natural or Artificial Opening Endoscopic (ICD-10-PCS; CPT 45378; principal; 2024-10-27 13:30)
DX: Z12.11 Encounter for screening for malignant neoplasm of colon (principal); K63.5 Polyp of colon; K64.8 Other hemorrhoids; K57.30 Diverticulosis of large intestine without perforation or abscess without bleeding; M19.021 Primary osteoarthritis, right elbow; I10 Essential (primary) hypertension; E78.00 Pure hypercholesterolemia, unspecified; M21.42 Flat foot [pes planus] (acquired), left foot; F12.90 Cannabis use, unspecified, uncomplicated; Z79.85 Long-term (current) use of injectable non-insulin antidiabetic drugs; Z98.890 Other specified postprocedural states; Z90.49 Acquired absence of other specified parts of digestive tract; Z87.891 Personal history of nicotine dependence; Z80.0 Family history of malignant neoplasm of digestive organs; Z82.49 Family history of ischemic heart disease and other diseases of the circulatory system
CPT/HCPCS: 45385; 88305; J2704; J7120